=== PATIENT | male | born 1965 | race Caucasian/White ===

== ENCOUNTER → 2025-01-03 07:13 | Outpatient (REF) | payer OTHER, SELFPAY | LOC: PAVMRI 07:13 | PROVIDERS: ATTENDING PHYSICIAN Orthopaedic Surgery Hand Surgery; FAMILY PHYSICIAN Internal Medicine | DX: S46.011A Strain of muscle(s) and tendon(s) of the rotator cuff of right shoulder, initial encounter (principal) | CPT/HCPCS: 72141; 73221 ==